=== PATIENT | male | born 1995 | race Caucasian/White ===

== ENCOUNTER 2017-06-18 14:03 | Observation (INO) | payer OTHER ==
[2017-06-18 16:00] LABS: #Basophils 0.1 thou/uL (0.0-0.2); #Eosinphils 0.3 thou/uL (0.0-0.7); #Lymphocytes 2.5 thou/uL (1.20-3.40); #Neutrophils 5.1 thou/uL (1.40-6.50); %Basophils 0.9 % (0.0-1.0); %Eosinophils 3.6 % (0.0-10.0); %Lymphocytes 27.8 % (21.0-51.0); %Monocytes 10.8 % (0.0-10.0); Mean Platelet Volume 6.4 fL (7.4-10.4); Red Blood Cell (RBC) Count 4.52 mill/uL (4.70-6.10)
[2017-06-18 16:22] LABS: Troponin I Less than 0.010 ng/mL (< 0.028)
[2017-06-18] MEDS ORDERED: Lorazepam 1 MG TAB ONE (16:22)
[2017-06-18 16:23] LABS: ALT (SGPT) 35 U/L (8-55); AST (SGOT) 74 U/L (5-34); Alkaline Phosphatase 86 U/L (40-150); Anion Gap 14 mmol/L (10-20); BUN (Urea Nitrogen) 17 mg/dL (8.9-20.6); Bilirubin, Total 0.4 mg/dL (0.2-1.2); CK (CPK) 2585 U/L (30-200); Calc. Creatinine Clearance 0 mL/min (70-130); Calcium 9.4 mg/dL (7.8-10.44); Carbon Dioxide 22 mmol/L (22-29); Chloride 107 mmol/L (98-107); Estimated GFR-MDRD Greater than 90; Protein, Total 7.3 g/dL (6.0-8.3)
--- NOTE | 2017-06-18 16:28 | RAD ---
PORTABLE CHEST: HISTORY: Numbness and tingling of face. The lung hancock appear clear. No infiltrate seen. Heart and mediastinum unremarkable. IMPRESSION: Unremarkable portable chest. POS: [facility]
[2017-06-18 16:29] LABS: Acetaminophen Less than 6.0 mcg/mL (10.0-30.0); Salicylate Less than 8.0 mg/dL (15.0-30.0)
[2017-06-18] MEDS ORDERED: Ondansetron HCl/PF 4 MG/2 ML Vial IVP PRN (23:25)
[2017-06-18] MEDS ORDERED: Ondansetron ODT 4 MG TAB SL PRN (23:25)
[2017-06-18] MEDS ORDERED: Acetaminophen 325 MG TAB PO PRN (23:25)
[2017-06-18 23:48] VITALS: BMI 40.8
[2017-06-19] MEDS ORDERED: Mag-Al 1200 mg/1200 mg/30 ML UDCUP PO PRN (00:05)
[2017-06-19] MEDS ORDERED: Lorazepam 2 MG/ML VIAL SLOW IVP PRN (00:05)
[2017-06-19] MEDS ORDERED: Lorazepam 1 MG TAB PO PRN (00:05)
[2017-06-19] MEDS ORDERED: cloNIDine HCl 0.1 MG TAB PO PRN (00:05)
[2017-06-19] MEDS ORDERED: Acetaminophen 325 MG TAB PO PRN (00:05)
[2017-06-19] MEDS ORDERED: Haloperidol 1 MG TAB PO PRN (00:05)
[2017-06-19] MEDS: Sodium Chloride 0.9% 1,000 ML IV SCH ×2 (02:28→09:37)
[2017-06-19 04:41] LABS: #Basophils 0.1 thou/uL (0.0-0.2); #Eosinphils 0.3 thou/uL (0.0-0.7); #Lymphocytes 2.5 thou/uL (1.20-3.40); #Monocytes 0.8 thou/uL (0.11-0.59); #Neutrophils 3.2 thou/uL (1.40-6.50); %Basophils 1.3 % (0.0-1.0); %Eosinophils 4.9 % (0.0-10.0); %Lymphocytes 35.8 % (21.0-51.0); %Monocytes 11.9 % (0.0-10.0); Red Blood Cell (RBC) Count 4.49 mill/uL (4.70-6.10)
[2017-06-19 05:11] LABS: Anion Gap 13 mmol/L (10-20); BUN (Urea Nitrogen) 13 mg/dL (8.9-20.6); CK (CPK) 1246 U/L (30-200); Calc. Creatinine Clearance 280 mL/min (70-130); Calcium 9.1 mg/dL (7.8-10.44); Carbon Dioxide 26 mmol/L (22-29); Chloride 107 mmol/L (98-107); Estimated GFR-MDRD Greater than 90
--- NOTE | 2017-06-19 06:28 | HP ---
DATE OF ADMISSION: 06/18/2017 The patient is a [place] call. CHIEF COMPLAINT: Altered mental status. HISTORY OF PRESENT ILLNESS: The history of present illness is taken from the emergency room records as the patient is either unable to or seems more like he is unwilling to discuss any of his history with me. He was able to answer 1 or 2 questions, but then he will close his eyes and stop talking at all, but Mr. Manjarrez is a 21-year-old gentleman who appears to have an extensive psychiatric histo ry from previous records including depression, bipolar disorder, and schizophrenia. He had reported to the emergency room complaining of chest pain and numbness and tingling all over for the last 2 o r 3 days. He says that he felt like he was taking too much fluoxetine and after being discharged fr a psychiatric hospital 2 or 3 weeks ago. He felt like he was feeling high on them, so he quit ta macie both of the fluoxetine and trazodone 2 or 3 days ago and then started having chest pain and jayden st pressure on the right side of his chest wall, which was exacerbated by the stress. He also said he recently quit smoking and for this reason, he is being placed in the observation. He appears to be in no distress. His vital signs were all stable and he is lying on the stretcher more or less in the position and refuses to answer any further questions. REVIEW OF SYSTEMS: Unobtainable as the patient is currently not cooperating. PAST MEDICAL HISTORY: From previous records include asthma, gastroesophageal reflux disease, depres hao, bipolar disorder, and schizophrenia. PAST SURGICAL HISTORY: He has had left leg surgery. ALLERGIES: He originally had said BENZODIAZEPINES to me as well as the nurse earlier, but then when she told him she was going to give him lorazepam, he said he is no longer allergic to it. SOCIAL HISTORY: Unobtainable. CURRENT MEDICATIONS: Also unobtainable. FAMILY HISTORY: Unobtainable. PHYSICAL EXAMINATION: GENERAL: He is alert and unable to assess orientation; however, he will quickly closes eyes and cadence eared that he is sleeping; however, it was noted that when his pulse ox came off, he quickly put the pulse oximeter back on his finger. VITAL SIGNS: Blood pressure was 131/72, heart rate 61, respiratory rate is 17, temperature is 98.1. HEENT: His pupils are equal, round, and reactive. Extraocular muscles are intact. His sclerae are anicteric. Throat no erythema, no exudates. NECK: No adenopathy, no bruits. LUNGS: Clear. There is no wheezing, no rales. CARDIOVASCULAR: He has a normal S1 and S2. There is no S3 or S4. No murmurs, clicks, or rubs. ABDOMEN: Soft, nontender, nondistended. Positive for bowel sounds. No rebound or guarding. EXTREMITIES: There is no edema. LABORATORY DATA AND X-RAY FINDINGS: The white blood cell count is 9, hemoglobin 14.8, hematocrit is 42, platelet count is 244. Sodium is 139, potassium 3.9, chloride is 107, CO2 is 22, BUN of 17, cr eatinine 0.96, glucose is 85. Aspirin level was less than 8. Acetaminophen level was less than 6, plasma alcohol less than 10. Creatine kinase was 2585 and MB was 20.8. ASSESSMENT AND PLAN: Mr. Manjarrez is a 21-year-old gentleman who presents to the emergency room with reported abrupt discontinuation of fluoxetine. It is possible that he could be undergoing a seroton in withdrawal symptoms. He also has an elevated creatine kinase; however, his renal function is nor mal. The patient will be placed in observation on IV fluids and we will recheck his CK level in the a.m. Also in the a.m., we will recheck him with regards to his mental status. I suspect this is p ossibly his baseline psychiatric illness and if he is hemodynamically and clinically stable, he will likely need to have an MR evaluation prior to being discharged. However, for the serotonin withd larry symptoms, no specific therapy is required and it should likely resolve on its own.
[2017-06-19] MEDS ORDERED: Enoxaparin Sodium 40 MG/0.4 ML SYRINGE SC SCH (09:00)
--- NOTE | 2017-06-19 10:34 | PDOC.PN ---
- Subjective Encounter Start Date: 06/19/17 Encounter Start Time: 10:32 Mr. Manjarrez is wide awake. He is answering questions appropriately. He admits to some numbness in his face and a little headache, otherwise ok - Objective Resuscitation Status: Resuscitation Status FULL:Full Resuscitation MAR Reviewed: Yes Vital Signs & Weight: Vital Signs (12 hours) Temp Pulse Resp BP Pulse Ox 06/19/17 03:55 55 L 16 125/66 95 06/18/17 23:30 98.0 F 61 16 133/62 97 Weight Weight 318 lb 9.6 oz I&O: 06/18/17 06/19/17 06/20/17 06:59 06:59 06:59 Intake Total 1558 Output Total 1300 Balance 258 Result Diagrams: 06/19/17 04:33 06/19/17 04:33 Phys Exam - Physical Examination HEENT: PERRLA Respiratory: no wheezing, no rales, no rhonchi, clear to auscultation bilateral Cardiovascular: RRR, no significant murmur Gastrointestinal: soft, non-tender, positive bowel sounds Musculoskeletal: no edema Dx/Plan (1) Altered mental status Code(s): R41.82 - ALTERED MENTAL STATUS, UNSPECIFIED Status: Acute (2) Serotonin withdrawal syndrome Code(s): T50.995A - ADVERSE EFFECT OF DRUG/MEDS/BIOL SUBST, INIT Status: Acute (3) Schizophrenia Code(s): F20.9 - SCHIZOPHRENIA, UNSPECIFIED Status: Acute (4) Bipolar disorder Code(s): F31.9 - BIPOLAR DISORDER, UNSPECIFIED Status: Acute (5) Rhabdomyolysis Code(s): M62.82 - RHABDOMYOLYSIS Status: Acute - Plan * Mild Rhabdomyolysis- improved. There has been no renal involvement- * Serotonin withdrawal- improved- his mental status is now appropriate and at baseline * He is medically stable for discharge * I spoke with his case repairer with [facility] on the phone, Marian Verdugo, who plans to see him tomorrow at 9:00AM * Will discharge him and will het a MR consult prior to discharge
--- NOTE | 2017-06-19 11:25 | DIS ---
DATE OF ADMISSION: 06/18/2017 DATE OF DISCHARGE: 06/19/2017 DISCHARGE DISPOSITION: Home. PRIMARY DISCHARGE DIAGNOSES: 1. Serotonin withdrawal syndrome. 2. Mild rhabdomyolysis. 3. Schizophrenia. 4. Bipolar disorder. DISCHARGE MEDICATIONS: Include trazodone 100 mg at bedtime as well as fluoxetine 20 mg twice a day. CODE STATUS: FULL CODE. ALLERGIES: To AMPHETAMINE, ATOMOXETINE, CODEINE, DEXTROMETHORPHAN, RISPERDAL, RELPAX, RED DYE and D IPHENHYDRAMINE. HOSPITAL COURSE: Mr. Manjarrez is a 21-year-old gentleman who presented to the emergency room with com plaints of feeling like his face was numb and aching all over. He also says that he had suddenly st opped taking his fluoxetine and trazodone because he felt those are making him feel \\\\"high.\\\\" He also was noted to have an elevated creatinine kinase level, this was the main reason he was admitted for mild rhabdomyolysis. He was placed on IV fluids and monitored in observation and his creatinin e kinase level has improved. The patient is currently back to his baseline level of functioning. Radha miranda complains of some numbness on the side of his face, but otherwise he is sitting up in the bed, aminta quijano in complete sentences, he is texting people on his cell phone and even called his [facility] uma mckay while I was in the room. I spoke to her on the phone and she says that she has an appointment s et up with him for tomorrow at 9 a.m. and we will plan to see him at that time. She also told me th at his psychiatrist is Dr. Lopez and he sees him regularly at [facility]. I did instructed her that we likely still need to get [facility] quick evaluation prior to discharge and likely he will be discharged home today.
[2017-06-19 15:50] VITALS: BP 129/76; TEMP 99
== END 2017-06-19 17:00 | disposition home or self-care (01) ==
LOC: ERS 14:03 → ERHOLD 17:17 → 2NO 23:09
PROVIDERS: ADMIT Internal Medicine; ATTEND Internal Medicine
DX: F20.9 Schizophrenia, unspecified (principal); R41.82 Altered mental status, unspecified; F31.9 Bipolar disorder, unspecified; K21.9 Gastro-esophageal reflux disease without esophagitis; J45.909 Unspecified asthma, uncomplicated; M62.82 Rhabdomyolysis; T50.995A Adverse effect of other drugs, medicaments and biological substances, initial encounter; Z88.5 Allergy status to narcotic agent; Z91.041 Radiographic dye allergy status; Z88.8 Allergy status to other drugs, medicaments and biological substances; Z98.890 Other specified postprocedural states; Z79.899 Other long term (current) drug therapy; Z87.891 Personal history of nicotine dependence
CPT/HCPCS: 36415; 71010; 80048; 80053; 80307; 82550; 82553; 84484; 85025; 93005; 96360; 96361; 96372; G0378; J1650

== ENCOUNTER 2017-06-21 05:15 | Emergency (ER) | payer OTHER ==
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
== END 2017-06-21 06:03 | disposition left against medical advice (07) ==
LOC: ERS 05:15
DX: Z53.21 Procedure and treatment not carried out due to patient leaving prior to being seen by health care provider (principal)

== ENCOUNTER 2017-07-19 16:15 | Emergency (ER) | payer OTHER ==
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
== END 2017-07-19 19:41 | disposition home or self-care (01) ==
LOC: ERS 16:15
DX: S16.1XXA Strain of muscle, fascia and tendon at neck level, initial encounter (principal); J45.909 Unspecified asthma, uncomplicated; K21.9 Gastro-esophageal reflux disease without esophagitis; I10 Essential (primary) hypertension; F84.5 Asperger's syndrome; G43.909 Migraine, unspecified, not intractable, without status migrainosus; F31.9 Bipolar disorder, unspecified; F25.9 Schizoaffective disorder, unspecified; F90.9 Attention-deficit hyperactivity disorder, unspecified type; Z87.891 Personal history of nicotine dependence; Z79.899 Other long term (current) drug therapy; V19.9XXA Pedal cyclist (driver) (passenger) injured in unspecified traffic accident, initial encounter
CPT/HCPCS: 70450; 72125

== ENCOUNTER 2017-09-13 23:08 | Emergency (ER) | payer OTHER ==
[2017-09-14] MEDS ORDERED: Ibuprofen 800 MG TAB ONE (00:05)
== END 2017-09-14 00:16 | disposition home or self-care (01) ==
LOC: ERS 23:08
DX: L73.9 Follicular disorder, unspecified (principal); J45.909 Unspecified asthma, uncomplicated; K21.9 Gastro-esophageal reflux disease without esophagitis; I10 Essential (primary) hypertension; F90.9 Attention-deficit hyperactivity disorder, unspecified type; F25.0 Schizoaffective disorder, bipolar type; Z87.891 Personal history of nicotine dependence
CPT/HCPCS: 99283